=== PATIENT | male | born 1955 | race Caucasian/White ===

== ENCOUNTER 2020-07-22 00:57 | Emergency (ER) | payer BC ==
[~2020-07-22] VITALS: Ht 177.8 cm; Wt 54.4 kg
[2020-07-22 01:49] LABS: HEMATOCRIT 37.7 % (39.0-50.0); HEMOGLOBIN 12.3 g/dl (14.0-18.0); IMMATURE GRANULOCYTES 0.4 % (0.0-5.0); MEAN CELL VOLUME 105.9 fL CALC (80.0-100.0); MEAN CORPUSCULAR HGB 34.6 pG CALC (26.0-32.0); MEAN CORPUSCULAR HGB CONC 32.6 g/dL CAL (32.0-36.0); NEUT# 5.81 thou/uL (1.82-7.42); RED BLOOD COUNT 3.56 mill/uL (4.70-6.10); RED CELL DISTRI WIDTH 13.9 % (11.5-15.5)
[2020-07-22 02:16] LABS: ACT PARTIAL THROMBO TIME 25.8 SECONDS (20.0-32.5); INTERNATIONAL NORMALIZED RATIO 1.1 RATIO (0.7-1.3); PROTHROMBIN TIME 10.8 SECONDS (9.0-12.5)
[2020-07-22 02:32] LABS: ALBUMIN 3.7 g/dL (3.2-5.0); ALKALINE PHOSPHATASE 206 u/l (38-126); ANION GAP 17 (6-22 (CALC)); BILIRUBIN, TOTAL 0.3 mg/dL (0.0-1.4); BUN < 2 mg/dL (8-23); CARBON DIOXIDE 26 mmol/l (22-30); CHLORIDE 98 mmol/l (95-108); CREATININE 0.5 mg/dL (0.7-1.3); ETHYL ALCOHOL 292 mg/dl (0-30); GFR > 60 ML/MIN (>=60 (CALC)); GFR FOR AFR.AMER. > 60 ML/MIN (>=60 (CALC)); LIPASE 411 u/l (23-300); POTASSIUM 4.5 mmol/l (3.5-5.1); SGOT/AST 40 u/l (19-48); SODIUM 136 mmol/l (137-146)
[2020-07-22 05:07] VITALS: BP 106/63
[2020-07-22 05:09] LABS: URINE BILIRUBIN - DIPSTICK NEGATIVE (NEGATIVE); URINE COLOR YELLOW; URINE GLUCOSE - DIPSTICK NEGATIVE (NEGATIVE); URINE KETONE NEGATIVE (NEGATIVE); URINE NITRITE - DIPSTICK NEGATIVE (Negative); URINE PROTEIN - DIPSTICK NEGATIVE (NEG-TRACE); URINE SPECIFIC GRAVITY <=1.005; URINE UROBILINOGEN - DIPSTICK 0.2 E.U./dL (0.2)
[2020-07-22 05:36] LABS: URINE LEUK ESTERASE SMALL (NEGATIVE)
[2020-07-22 05:37] LABS: URINE BLOOD DIPSTICK NEGATIVE (NEGATIVE); URINE EPITHELIAL CELLS FEW EPI/hpf (0-FEW); URINE RBC 0-2 RBC/hpf (0-5)
[2020-07-22 05:38] LABS: URINE BACTERIA MODERATE hpf
--- NOTE | 2020-07-24 08:17 | NUR ---
Final urine culture results from 07/22/20 showing P. aeruginosa wright susceptible were sent to [facility]hi [facility] at [phone] to [facility].
== END 2020-07-22 05:07 | DRG 563 ==
LOC: ED 00:57
PROC: 2W3RX1Z Immobilization of Left Lower Leg using Splint (ICD-10-PCS; principal; 2020-07-22)
DX: S89.002A Unspecified physeal fracture of upper end of left tibia, initial encounter for closed fracture (principal); S89.202A Unspecified physeal fracture of upper end of left fibula, initial encounter for closed fracture; F10.129 Alcohol abuse with intoxication, unspecified; J44.9 Chronic obstructive pulmonary disease, unspecified; W01.0XXA Fall on same level from slipping, tripping and stumbling without subsequent striking against object, initial encounter; Y93.G1 Activity, food preparation and clean up; Y92.000 Kitchen of unspecified non-institutional (private) residence as the place of occurrence of the external cause; Z91.81 History of falling; R82.71 Bacteriuria

== ENCOUNTER 2022-03-18 21:17 | Emergency (ER) | payer BC ==
[2022-03-18] VITALS (12 sets, daily range): BP systolic 87–177; BP diastolic 66–149
[~2022-03-18] VITALS: Ht 177.8 cm; Wt 59.0 kg
[2022-03-18 21:55] LABS: HEMATOCRIT 34.8 % (39.0-50.0); HEMOGLOBIN 12.9 g/dl (14.0-18.0); IMMATURE GRANULOCYTES 0.6 % (0.0-5.0); MEAN CORPUSCULAR HGB 38.2 pG CALC (26.0-32.0); MEAN CORPUSCULAR HGB CONC 37.1 g/dL CAL (32.0-36.0); NEUT# 9.91 thou/uL (1.82-7.42); RED BLOOD COUNT 3.38 mill/uL (4.70-6.10); RED CELL DISTRI WIDTH 14.6 % (11.5-15.5)
[2022-03-18 22:13] LABS: ALBUMIN 2.9 g/dL (3.2-5.0); BUN 3 mg/dL (8-23); BUN/CREATININE RATIO 3 (12-20 (CALC)); CPK 58 u/l (52-200); ETHYL ALCOHOL 0 mg/dl (0-30); GFR FOR AFR.AMER. > 60 ML/MIN (>=60 (CALC)); GFR OTHER RACES > 60 ML/MIN (>=60 (CALC)); LIPASE 31 u/l (23-300); MAGNESIUM 1.8 mg/dL (1.6-2.3); POTASSIUM 4.4 mmol/l (3.5-5.1); TOTAL PROTEIN 7.9 g/dL (6.3-8.2)
[2022-03-18 22:22] LABS: ALKALINE PHOSPHATASE 468 u/l (38-126); ANION GAP 20 (6-22 (CALC)); BILIRUBIN, TOTAL 11.7 mg/dL (0.0-1.4); CARBON DIOXIDE 19 mmol/l (22-30); CHLORIDE 85 mmol/l (95-108); SGOT/AST 198 u/l (19-48); SODIUM 120 mmol/l (137-146)
[2022-03-18 22:25] LABS: MYOGLOBIN 129 ng/mL (0 - 121)
[2022-03-18 22:43] LABS: TSH, 3RD GENERATION 4.35 uIU/mL (0.47 - 4.68)
[2022-03-18 23:29] LABS: ACT PARTIAL THROMBO TIME 49.2 SECONDS (20.0-32.5)
[2022-03-18 23:30] LABS: INTERNATIONAL NORMALIZED RATIO 3.4 RATIO (0.7-1.3)
[2022-03-19] VITALS: BP 102/82
[2022-03-19 00:30] VITALS: BP 108/73
[2022-03-19 02:46] VITALS: BP 108/73
== END 2022-03-19 02:00 | disposition short-term general hospital (02) | DRG 445 ==
LOC: ED 21:17
PROVIDERS: Family Medicine
DX: K81.0 Acute cholecystitis (principal); E87.1 Hypo-osmolality and hyponatremia; F10.20 Alcohol dependence, uncomplicated; K76.89 Other specified diseases of liver; D68.9 Coagulation defect, unspecified; J44.9 Chronic obstructive pulmonary disease, unspecified
CPT/HCPCS: Q9967